=== PATIENT | female | born 1980 | race Caucasian/White ===

== ENCOUNTER 2019-05-28 15:15 | Emergency (ER) | payer OTHER ==
[~2019-05-28] VITALS: Ht 162.6 cm; Wt 51.3 kg
[2019-05-28] MEDS ORDERED: IBUPROFEN 600 MG TABLET PO ONE ×2 (15:41→16:00)
--- NOTE | 2019-05-28 15:45 | NUR ---
RIGHT FOOT PAIN WHEN STANDING/WALKING SINCE YESTERDAY,NO TRAUMA. ROOM AIR, BREATHING EVENLY AND LABORED. CONNECTED TO THE MONITOR AND PULSE OX. WILL CONTINUE TO MONITOR ACCORDINGLY.
--- NOTE | 2019-05-28 15:52 | NUR ---
x-ray tech at bedside
[2019-05-28 16:40] VITALS: BP 11/64
--- NOTE | 2019-05-28 16:40 | NUR ---
Patient discharged to home in stable condition. Written and verbal after care instructions given. Patient verbalizes understanding of instruction.
== END 2019-05-28 16:40 | disposition home or self-care (01) ==
LOC: ER 15:26
DX: S93.491A Sprain of other ligament of right ankle, initial encounter (principal); F17.200 Nicotine dependence, unspecified, uncomplicated; X58.XXXA Exposure to other specified factors, initial encounter; Y93.01 Activity, walking, marching and hiking; Y92.89 Other specified places as the place of occurrence of the external cause; Y99.8 Other external cause status
CPT/HCPCS: 73610-TC